=== PATIENT | male | born 1970 | race Caucasian/White ===

== ENCOUNTER 2024-05-23 09:24 | Emergency (ER) | payer OTHER, SELFPAY ==
--- NOTE | ~2024-05-23 | US_ITS ---
EXAMINATION: US TRIPLEX LOWER EXTREMITY, LEFT CLINICAL INFORMATION: Catheter pain and swelling. COMPARISON: None available. TECHNIQUE: Color-flow triplex imaging with spectral analysis and compression Doppler were performed on the left lower extremity. FINDINGS: Respiratory variation, normal compression and augmented flow are noted throughout the left lower extremity. The visualized common femoral vein, superficial femoral vein, profunda femoral vein, popliteal vein and midcalf peroneal and posterior tibial venous segments show no evidence of deep venous thrombosis. There is no Carmichael's cyst. US/US venous duplex LE LT IMPRESSION: No acute deep venous thrombosis in the interrogated veins, left lower extremity. Electronically signed by: Salvador Orozco MD 05/23/2024 02:25 PM EST
--- NOTE | ~2024-05-23 | XR_ITS ---
EXAMINATION: XR FOOT, LEFT CLINICAL INFORMATION: Pain. History of gout COMPARISON: None available. TECHNIQUE: AP, lateral, and oblique views of the left foot. FINDINGS: No acute cortical disruption or malalignment. No lytic or blastic lesions. No gross soft tissue nodular opacities. No subcutaneous tendons emphysema. XR/XR foot LT 2V IMPRESSION: No acute fracture or dislocation. No gross tofu. Electronically signed by: Salvador Orozco MD 05/23/2024 10:27 AM [facility]
--- NOTE | ~2024-05-23 | XR_ITS ---
EXAMINATION: XR CHEST CLINICAL INFORMATION: Chest pain COMPARISON: None available. TECHNIQUE: 2 views of the chest were obtained. FINDINGS: Lungs are clear. No pleural effusion. Heart and pulmonary vessels normal. XR/XR chest 2V IMPRESSION: No active disease. Electronically signed by: Iron Jenkins MD 05/23/2024 12:47 PM [facility]
[2024-05-23 09:51] VITALS: BP 177/115; PULSE 65; O2SAT 97
[2024-05-23 09:52] VITALS: BP 142/91; PULSE 69; RESP 18; TEMP 36.6; O2SAT 99; BMI 27.1
--- NOTE | 2024-05-23 12:11 | ED_ITS ---
HPI - General Adult General Chief complaint: Extremity Injury, Lower Stated complaint: LEFT FOOT PAIN/DIAPHORETIC/NOW PWD Time Seen by Provider: 05/23/24 18:57 History of Present Illness HPI narrative: Patient with 2 complaints First complaint is left foot pain which started after a busy weekend where he had been drinking more than normal for himself, he says he is not a heavy drinker but will drink about 3 times a week and this weekend there were part he has any drank more and then noticed his left foot at the base of the big toe was hurting a lot and a little bit red and it was mildly painful for 2 or 3 days and today it became very painful Second complaint is a near fainting episode, at 05:45 this morning patient tried to walk to the bathroom and felt excruciating pain in his left big toe and became very dizzy and slouched against the wall to the floor and then remembers his coming over to him as he is leaning against the wall and he remembers everything after that he is not sure if he was unconscious, when his got to him he was able to respond, he had no seizure movements no postictal movements he had no preceding chest pain palpitations or shortness of breath, he did not have a headache, there is no other discomfort, he never had any weakness or numbness, never had facial asymmetry per the never had difficulty forming words are understanding, no recent fevers no stiff neck Right now he feels fine he does not feel dizzy, the pain in his foot is very tolerable unless he tries to move the toe or someone touches it, no fever no chills Related Data Previous Rx's ?Medication ?Instructions ?Recorded acetaminophen 325 mg capsule 975 mg (3 x 325 mg) PO Q6H PRN 05/23/24 pain #30 caps colchicine 0.6 mg tablet 0.6 mg PO BID Gout #10 tabs 05/23/24 oxycodone 5 mg tablet 5 mg PO Q6H PRN pain #20 tabs 05/23/24 prednisone 20 mg tablet 60 mg (3 x 20 mg) PO DAILY 4 days 05/23/24 #12 tabs Allergies Allergy/AdvReac Type Severity Reaction Status Date / Time aspirin [ASA] Allergy Unknown Verified 05/23/24 09:56 NSAIDS (Non-Steroidal Allergy Unknown Verified 05/23/24 09:56 Anti-Inflamma Penicillins Allergy Unknown Verified 05/23/24 09:56 [facility] Past Medical History Source: nursing notes reviewed Social History Social History Advance Directives: No Advance Directives Information Provided: Yes Do you have a plan to hurt others: No Plan Physical Exam ED Vital Signs: Vital Signs - 24 hr 05/23/24 09:52 05/23/24 17:08 05/23/24 18:04 Temperature 97.8 F 98.1 F 98.2 F Pulse Rate 69 78 81 Respiratory Rate 18 16 16 Blood Pressure 142/91 H 173/94 H 182/94 H Pulse Oximetry 99 100 97 Oxygen Delivery Method Room Air Room Air Room Air 05/23/24 19:59 05/23/24 20:39 Temperature 98.1 F 98.1 F Pulse Rate 75 75 Respiratory Rate 16 16 Blood Pressure 171/97 H 171/97 H Pulse Oximetry 99 99 Oxygen Delivery Method Room Air Room Air BMI result Body Mass Index 27.1 General appearance comfortable cooperative no acute distress Head is normocephalic atraumatic Eyes pupils equal round reactive to light extraocular motions are intact The ears are normal, tympanic membranes intact no hemotympanum The face no raccoon eyes no preciado sign, no swelling The pharynx is clear mucous membranes are moist Neck is supple Chest is clear to auscultation bilateral Heart no murmur Abdomen soft nontender Extremities the left foot at the base of the big toe has mild redness/pinkish it is not warm the patient has some movement in the toe but it was very painful, it is exquisitely tender to the touch Other extremities are normal as is the rest of the left foot The left foot is neurovascular intact with 2+ pulses, color was normal except for at the base of the big toe Skin no rash Neuro motor is 5/5 x4, interaction comprehension and expression are all normal, there is no facial asymmetry, cranial nerves 2-12 intact as tested, cerebellar exam [id number] is totally normal Course Course Course Narrative: This is a rapid medical exam performed by Johanna Chavira NP: Additional HPI, ROS, PE not included below will be deferred to primary provider. Patient is a 54-year-old male presenting from urgent care with complaint of left foot pain. Initially seen by biodiesel division manager prior to my arrival, who ordered an x-ray. Significant other presenting to triage office at 12:12 reporting that patient had a syncopal episode at home this morning, and a near syncopal episode at . Plan: EKG, labs, CXR Uric acid was mildly elevated at 7.6 No other acute abnormalities on chemistry coagulation or hematology Ultrasound was ordered from triage of left lower extremity with no DVT no acute findings Chest x-ray ordered from triage no acute abnormality, normal Foot x-ray of left foot no acute fracture or dislocation, no evidence of malignancy no subcu emphysema EKG done for syncope was a normal sinus rhythm with a rate of 60, QRS was normal, no acute ischemic change no ST elevations patient is painful foot is likely gout and location and appearance and description are all consistent with gout with a mildly everything elevated uric acid patient is treated for gout The syncopal episode as described as likely a vasovagal episode which occurred immediately after a very sharp excruciating pain in his foot, troponin was under 2.5 he never had chest pain palpitation shortness of breath nausea or diaphoresis EKG was a normal sinus rhythm no evidence of arrhythmia tachycardia or ischemic change, chest x-ray was normal Patient throughout his visit has been drinking fluids symptom free and comfortable with no dizziness or feeling faint, with stable vital signs His elevated blood pressure is likely because he did not take his daily blood pressure pill today He was given a postop shoe which made walking much more comfortable he ambulated easily without dizziness, and he is discharged Medications Administered Discontinued Medications Generic Name Dose Route Start Last Admin Trade Name Freq PRN Reason Stop Dose Admin Acetaminophen 975 mg 05/23/24 19:59 05/23/24 20:08 Acetaminophen 325 Mg Tablet PO 05/23/24 20:00 975 mg ONCE ONE Administration Colchicine 0.6 mg 05/23/24 20:04 05/23/24 20:22 Colchicine 0.6 Mg Tablet PO 05/23/24 20:05 0.6 mg ONCE ONE Administration Oxycodone HCl 10 mg 05/23/24 19:59 05/23/24 20:08 Oxycodone Hcl Immed Release 5 Mg Tablet PO 05/23/24 20:00 10 mg ONCE ONE Administration Prednisone 60 mg 05/23/24 19:59 05/23/24 20:09 Prednisone 20 Mg Tablet PO 05/23/24 20:00 60 mg ONCE ONE Administration Medical Decision Making Lab Data MDM Lab Attestation statement: I reviewed the patient's lab results. 05/23/24 12:40 05/23/24 12:40 Labs: Lab Results 05/23/24 Range/Units 12:40 WBC 9.6 (4.8-10.8) X10*3/uL RBC 5.03 (4.60-5.80) X10*6/uL Hgb 15.6 (14.0-18.0) g/dl Hct 45.4 (42.0-52.0) % MCV 90.3 (80.0-98.0) fL MCH 31.0 (27.0-33.0) pg MCHC 34.4 (31.0-36.0) g/dl RDW 12.0 (11.0-16.0) % Plt Count 346 (160-400) X10*3/uL MPV 9.4 (9.4-12.4) fL Immature Gran % (Auto) 0.2 (0.0-0.4) % Neut % (Auto) 81.5 H (45-73) % Lymph % (Auto) 11.7 L (20-40) % [place] % (Auto) 5.2 (2-11) % Eos % (Auto) 0.5 (0-4) % Baso % (Auto) 0.9 (0-2) % Lymph # (Auto) 1.1 L (1.2-4.9) X10*3/uL [place] # (Auto) 0.5 (0.1-1.2) X10*3/uL Eos # (Auto) 0.1 (0.0-0.4) X10*3/uL Baso # (Auto) 0.1 (0.0-0.2) X10*3/uL Abs Immat Gran (auto) 0.02 (0.00-0.03) X10*3/uL Absolute Neuts (auto) 7.8 (2.0-8.3) x10*3/uL Absolute Nucleated RBC 0.000 (0.0-0.012) X10*3/uL Nucleated RBC % (auto) 0.0 (0.0-0.2) /100WBC PT 12.3 (10.9-12.4) SEC INR 1.1 (0.9-1.1) Sodium 141 (135-145) mmol/L Potassium 4.0 (3.3-5.1) mmol/L Chloride 105 (96-108) mmol/L Carbon Dioxide 28 (22-29) mmol/L Anion Gap 12 (12-20) BUN 9 (9-16) mg/dL Creatinine 0.83 (0.5-1.4) mg/dL Estim Creat Clear Calc 102.9 Estimated GFR > 60 Random Glucose 110 (60-115) mg/dL Uric Acid 7.6 H (3.4-7.0) mg/dL Calcium 9.6 (8.4-10.2) mg/dL Total Bilirubin 0.8 (0.0-1.0) mg/dL AST 36 (5-37) U/L ALT 64 H (0-40) U/L Alkaline Phosphatase 76 (39-117) U/L Troponin I High Sens < 2.7 (<3.5-35.0) ng/L Total Protein 9.0 H (6.5-8.0) g/dL Albumin 4.7 (3.5-5.0) g/dL Discharge Plan Discharge Clinical Impression: Gout, Syncope, vasovagal Patient Disposition: Home, Self-Care Additional Instructions: You likely have gout in the classic spot of her foot so we are trying colchicine prednisone for gout and Tylenol and oxycodone for pain The fainting episode as described is likely vasovagal, meaning not likely to be dangerous But if you faint again or get episodes of feeling like you are going to faint return to the ER any time Follow closely with your doctor and if you do get episodes of dizziness he might order a monitor Prescriptions: New colchicine 0.6 mg tablet 0.6 mg PO BID Qty: 10 0RF prednisone 20 mg tablet 60 mg PO DAILY 4 Days Qty: 12 0RF acetaminophen 325 mg capsule 975 mg PO Q6H PRN (Reason: pain) Qty: 30 0RF oxycodone 5 mg tablet 5 mg PO Q6H PRN (Reason: pain) Qty: 20 0RF Rx Instructions: Partial Fill upon patient request. Stand Alone Forms: Work/School Release Interventions: ED Discharge Assessment Last Done: 05/23/24 20:39 Discharge Date/Time: 05/23/24 20:39 Print Language: Lithuanian
--- NOTE | 2024-05-23 12:13 | ECG_ITS ---
Test Reason : syncope Blood Pressure : / mmHG Vent. Rate : 060 BPM Atrial Rate : 060 BPM P-R Int : 162 ms QRS Dur : 102 ms QT Int : 420 ms P-R-T Axes : 041 -02 058 degrees QTc Int : 420 ms Normal sinus rhythm Normal ECG No previous ECGs available Referred By: Kati Chavira Electronically Signed By:Jose F Smith
[2024-05-23 12:44] LABS: MANUAL DIFF FLAG NO
[2024-05-23 12:45] LABS: Basophils Absolute Auto 0.1 X10*3/uL (0.0-0.2); Basophils Percent Auto 0.9 % (0-2); Eosinophils Absolute Auto 0.1 X10*3/uL (0.0-0.4); Eosinophils Percent Auto 0.5 % (0-4); Hematocrit 45.4 % (42.0-52.0); Hemoglobin 15.6 g/dl (14.0-18.0); Imm Gran Abs Auto 0.02 X10*3/uL (0.00-0.03); Imm Gran Pct Auto 0.2 % (0.0-0.4); Lymphocytes Absolute Auto 1.1 X10*3/uL (1.2-4.9); Lymphocytes Percent Auto 11.7 % (20-40); Mean Corpuscular HGB Conc 34.4 g/dl (31.0-36.0); Mean Corpuscular Volume 90.3 fL (80.0-98.0); Mean Platelet Volume 9.4 fL (9.4-12.4); Monocytes Absolute Auto 0.5 X10*3/uL (0.1-1.2); Monocytes Percent Auto 5.2 % (2-11); Neutrophils Absolute Auto 7.8 x10*3/uL (2.0-8.3); Neutrophils Percent Auto 81.5 % (45-73); Platelet Count 346 X10*3/uL (160-400); Red Blood Count 5.03 X10*6/uL (4.60-5.80); White Blood Count 9.6 X10*3/uL (4.8-10.8)
[2024-05-23 12:52] LABS: INTERNATIONAL NORM RATIO 1.1 (0.9-1.1); Prothrombin Time 12.3 SEC (10.9-12.4)
[2024-05-23 13:01] LABS: Alanine Aminotransferase 64 U/L (0-40); Albumin Level 4.7 g/dL (3.5-5.0); Alkaline Phosphatase 76 U/L (39-117); Anion Gap 12 (12-20); Aspartate Amino Transferase 36 U/L (5-37); Bilirubin Total 0.8 mg/dL (0.0-1.0); Blood Urea Nitrogen 9 mg/dL (9-16); Calcium 9.6 mg/dL (8.4-10.2); Carbon Dioxide 28 mmol/L (22-29); Chloride 105 mmol/L (96-108); Creatinine Clr Calc Pharmacy 102.9; Estimated Glomerular Filt Rate > 60; Glucose Random 110 mg/dL (60-115); Sodium 141 mmol/L (135-145)
[2024-05-23 13:10] LABS: Troponin-I High Sensitivity < 2.7 ng/L (<3.5-35.0)
[2024-05-23 17:08] VITALS: BP 173/94; PULSE 78; RESP 16; TEMP 36.7; O2SAT 100
[2024-05-23 18:04] VITALS: BP 182/94; PULSE 81; RESP 16; TEMP 36.8; O2SAT 97
--- NOTE | 2024-05-23 18:27 | PC.NURSE ---
spoke with seed laboratory assistant Heidi will add uric acid
[2024-05-23 18:50] LABS: Uric Acid 7.6 mg/dL (3.4-7.0)
[2024-05-23 19:59] VITALS: BP 171/97; PULSE 75; RESP 16; TEMP 36.7; O2SAT 99
[2024-05-23] MEDS: Acetaminophen 325 MG TABLET 975 MG PO (20:08)
[2024-05-23] MEDS: oxyCODONE HCl Immed Release 5 MG TABLET 10 MG PO (20:08)
[2024-05-23] MEDS: predniSONE 20 MG TABLET 60 MG PO (20:09)
[2024-05-23] MEDS: Colchicine 0.6 MG TABLET PO (20:22)
[2024-05-23 20:39] VITALS: BP 171/97; PULSE 75; RESP 16; TEMP 36.7; O2SAT 99
== END 2024-05-23 20:39 | disposition home or self-care (01) ==
PROVIDERS: Registered Nurse Emergency; Emergency Provider Emergency Medicine; PCP Physician Assistant
DX: M10.9 Gout, unspecified (principal); R55 Syncope and collapse; M79.675 Pain in left toe(s); R42 Dizziness and giddiness; M79.605 Pain in left leg; R07.9 Chest pain, unspecified; M79.89 Other specified soft tissue disorders; Z43.6 Encounter for attention to other artificial openings of urinary tract
CPT/HCPCS: 36415; 71046; 73620; 80053; 84484; 84550; 85025; 85610; 93005; 93971; 99284

== ENCOUNTER → 2024-05-23 10:04 | Outpatient (BNV) | payer OTHER, SELFPAY | PROVIDERS: PCP Internal Medicine; Visit Provider Radiology Diagnostic Radiology | DX: R22.42 Localized swelling, mass and lump, left lower limb (principal); M79.672 Pain in left foot | CPT/HCPCS: 73620; 93971 ==

== ENCOUNTER → 2024-05-23 12:13 | Outpatient (BNV) | payer OTHER, SELFPAY | PROVIDERS: PCP Internal Medicine; Visit Provider Internal Medicine Cardiovascular Disease | DX: R55 Syncope and collapse (principal) | CPT/HCPCS: 93010 ==